=== PATIENT | female | born 1970 | race Caucasian/White ===

== ENCOUNTER 2018-10-29 04:23 | Emergency (ER) | payer SELFPAY, OTHER ==
[2018-10-29 05:06] LABS: ADD MAN DIFF? NO
[2018-10-29 05:08] LABS: BASOPHIL # 0.1 10^3/ul (0.0-0.1); BASOPHILS % 0.7 % (0.0-2.0); EOSINOPHILS # 0.2 10^3/ul (0.0-0.5); HEMATOCRIT 41.9 % (37.0-47.0); LYMPHOCYTES # 2.7 10^3/ul (0.8-2.9); LYMPHOCYTES % 17.8 % (15.0-51.0); MEAN CORPUSCULAR HEMOGLOBIN 26.1 pg (29.0-33.0); MEAN PLATELET VOLUME 11.6 fl (7.4-10.4); MONOCYTES % 6.8 % (0.0-11.0); NEUTROPHIL # 11.2 10^3/ul (1.6-7.5); NEUTROPHILS % 72.8 % (39.0-77.0); PLATELET COUNT 358 10^3/UL (140-415); RED BLOOD COUNT 4.99 10^6/ul (4.20-5.40); RED CELL DISTRIBUTION WIDTH 15.7 % (11.5-14.5)
[2018-10-29 05:08] LABS: WHITE BLOOD COUNT 15.4 10^3/ul (4.8-10.8)
[2018-10-29] MEDS: ONDANSETRON 4 MG INJ IV (05:11)
[2018-10-29] MEDS: HYDROmorphONE 1 MG/ML SYG IV (05:15)
[2018-10-29 05:49] LABS: ALANINE AMINOTRANSFERASE 85 IU/L (13-69); ALBUMIN 4.4 g/dl (3.3-4.9); ALBUMIN/GLOBULIN RATIO 1.25; ALKALINE PHOSPHATASE 228 IU/L (42-121); ANION GAP 14 (5-13); ASPARTATE AMINO TRANSFERASE 115 IU/L (15-46); BILIRUBIN,INDIRECT 0.4 mg/dl (0-1.1); BILIRUBIN,TOTAL 0.4 mg/dl (0.2-1.3); BLOOD UREA NITROGEN 8 mg/dl (7-20); CALCIUM 10.1 mg/dl (8.4-10.2); CARBON DIOXIDE 19 mmol/L (21-31); CHLORIDE 104 mmol/L (97-110); CREATININE 0.39 mg/dl (0.44-1.00); Estimated GFR > 60 mL/min (>60); GLUCOSE 288 mg/dl (70-220); LIPASE 248 U/L (23-300); POTASSIUM 4.7 mmol/L (3.5-5.1); SODIUM 137 mmol/L (135-144); TOTAL PROTEIN 7.9 g/dl (6.1-8.1)
[2018-10-29] MEDS: SOD CHLORIDE 0.9% 100 ML (06:36)
[2018-10-29] MEDS: IOHEXOL 300MG/ML 150 ML BTL (06:37)
[2018-10-29] MEDS: SOD CHLORIDE 0.9% 1,000 ML IV (08:59)
== END 2018-10-29 10:19 | disposition home or self-care (01) ==
LOC: E/R 04:23
DX: K76.0 Fatty (change of) liver, not elsewhere classified (principal); R74.0 Nonspecific elevation of levels of transaminase and lactic acid dehydrogenase [LDH]; N83.201 Unspecified ovarian cyst, right side; R73.9 Hyperglycemia, unspecified
CPT/HCPCS: 36415; 74177; 76705; 80053; 81025; 82962; 83690; 85025; 96374; 96375; 99285-25